=== PATIENT | female | born 1960 | race Caucasian/White ===

== ENCOUNTER → 2017-01-13 11:39 | Outpatient (CLI) | payer MEDICAID ==
[~2017-01-13] VITALS: Ht 177.8 cm; Wt 104.5 kg
--- NOTE | ~2017-01-13 | HEMODYNAMI ---
PATIENT:LIONEL RAYO MEDICAL RECORD: [id number] : 62 LOCATION:[facility] ADMISSION DATE: 01/13/17 Generatedon:01/13/201714:20 Patient name: LIONEL RAYO Patient #: [id number] SSN: : Date of study: 01/13/2017 Page: Of Hemodynamic Procedure Report Patient Data Patient Demographics Procedure consent was obtained First Name: LIONEL Gender: Female Last Name: PERRI : 1960 Middle Initial: KATHYA Age: 56 year(s) Patient #: [id number] Race: Unknown Additional ID: [id number] Contact details [address]: [address] [place] [address] State: [place] City: [place] Zip code: [address] Admission Admission Data Admission Date: 01/13/2017 Admission Time: 11:39 Procedure Procedure Types Cath Procedure Diagnostic Procedure LHC LHC w/Coronaries Miscellaneous Procedures Moderate Sedation up to 15 minutes Procedure Description Procedure Date Procedure Date: 01/13/2017 Procedure Start Time: 14:00 Procedure End Time: 14:19 Procedure Staff Name Function Nicholas Hill MD Performing Physician Martin Crews RT Scrub Candelaria Escalona RN Nurse Sid Tucker RT Monitor Procedure Data Cath Procedure Fluoroscopy Diagnostic fluoroscopy Total fluoroscopy Time: 5.7 time: 5.7 min min Diagnostic fluoroscopy Total fluoroscopy dose: 716 dose: 716 mGy mGy Contrast Material Contrast Material Type Amount (ml) Isovue 300 103 Entry Location Entry Primary Successful Side Size Upsize Upsize Entry Closure Richardson ccessful Closure Location (Fr) 1 (Fr) 2 (Fr) Remarks Device Remarks Radial Right 6 Fr Mechanical artery Short Compression Estimated blood loss: 10 ml Diagnostic catheters Device Type Used For End Catheter Placement Diagnostic Terumo 5Fr Procedure [place] 110cm catheter Diagnostic Infinity 5Fr Procedure AR MOD Catheter Procedure Complications No complications Procedure Medications Medication Administration Route Dosage Oxygen NC 2 l/min Heparin Flush Bag added to field 2 bags (1000units/500ml NS) Lidocaine 2% added to field 20 Radial Cocktail added to field 1 syringe (Verapomil 2mg/Nitro 400mcg/Heparin 1500units) Versed I.V. 1 mg Fentanyl I.V. 50 mcg Versed I.V. 1 mg Fentanyl I.V. 50 mcg Radial Cocktail added to field 1 syringe (Verapomil 2mg/Nitro 400mcg/Heparin 1500units) Versed I.V. 1 mg Fentanyl I.V. 50 mcg Hemodynamics Rest Heart Rate: 65 (bpm) Pressure Samples Time Site Value (mmHg) Purpose Heart Use Rate(bpm) 14:02 LV 113/19,22 Snapshot 83 14:04 AO 117/75(93) Snapshot 77 Gradients Valve Time Site Site Mean SEP/DFP Peak To Heart Use 1 2 (mmHg) (sec/min) Peak Rate (mmHg) (bpm) Aortic 14:03 LV AO 84 Snapshots Pre Cath Intra NCS Post Cath Vital Signs Time Heart Resp SPO2 etCO2 [id number] NIBP (mmHg) Rhythm Pain Sedation Rate (ipm) (%) (mmHg) (mmHg) Status Level (bpm) 13:49:23 67 15 99 0 0 148/80(115) NSR 0 (11) 10(A) , No pain 13:53:48 66 17 100 0 0 143/80(112) NSR 0 (11) 10(A) , No pain 13:58:10 64 16 96 0 0 142/79(114) NSR 0 (11) 10(A) , No pain 14:03:09 81 28 98 0 0 Measuring NSR 0 (11) 10(A) , No pain 14:03:25 82 27 97 0 0 111/69(97) NSR 0 (11) 9(A) , No pain 14:07:39 71 16 96 0 0 127/75(98) NSR 0 (11) 9(A) , No pain 14:11:57 76 16 97 0 0 143/78(117) NSR 0 (11) 9(A) , No pain 14:15:57 80 23 95 0 0 142/77(111) NSR 0 (11) 10(A) , No pain Medications Time Medication Route Dose Verified Delivered Reason Notes Effectiveness by by 13:48:17 Oxygen NC 2 l/min Nicholas Donovan RN physician 13:48:25 Heparin Flush added 2 bags Nicholas Peterson used for Bag to Liz Liz procedure (1000units/500ml field MD GRIMM NS) 13:48:32 Lidocaine 2% added 20ml Nicholas Nicholas used for to vial Liz Musselshell procedure field MD GRIMM 13:48:40 Radial Cocktail added 1 Nicholas Peterson used for (Verapomil to syringe [place]hell procedure 2mg/Nitro field MD GRIMM 400mcg/Heparin 1500units) 13:56:26 Versed I.V. 1 mg Nicholas Candelaria for sedation [facility] Escalona RN, MD 13:56:36 Fentanyl I.V. 50 mcg Nicholas Candelaria for sedation [facility] Escalona RN, MD 13:58:34 Versed I.V. 1 mg Nicholas Candelaria for sedation [facility] Escalona RN, MD 13:58:37 Fentanyl I.V. 50 mcg Nicholas Candelaria for sedation MusselshellRush Escalona RN, MD 14:00:38 Versed I.V. 1 mg Nicholas Candelaria for sedation MusselshellRush Escalona RN, MD 14:00:47 Fentanyl I.V. 50 mcg Nicholas Candelaria for sedation MusselshellRush Escalona RN, MD 14:01:06 Radial Cocktail added 1 Nicholas Peterson for (Verapomil to syringe [place] Liz vasodilation 2mg/Nitro field MD GRIMM 400mcg/Heparin 1500units) Procedure Log Time Note 13:20:20 Martin Crews RT(R) sent for patient. Start room use. 13:30:15 ACC Patient presents with Stable Angina CCS Anginal Class 2--Slight limitation of ordinary activity. 13:30:17 Diagnostic Cath status Elective 13:30:21 Time tracking: Regular hours 13:30:26 Plan of Care:Hemodynamics will remain stable., Cardiac rhythm will remain stable., Comfort level will be maintained., Respiratory function will remain adequate., Patient/ family verbilizes understanding of procedure., Procedure tolerated without complication., Recovers from procedure without complications.. 13:42:38 Patient received from Pre/Post Procedure Room to [facility] 1 Alert and oriented. Tansferred to table in Supine position. 13:42:39 Warm blankets applied, and wilder hugger turned on for patient comfort. 13:42:40 Correct patient and procedure confirmed by team. 13:42:41 Signed procedure consent form obtained from patient. 13:42:42 ECG and BP/O2 sat monitors applied to patient. 13:44:39 H&P Date Dictated: 01/09/2017 Within 30 days and on chart., H&P Addendum completed by physician on day of procedure. (MUST COMPLETE FOR ALL OUTPATIENTS). 13:48:07 Vital chart was started 13:48:17 Oxygen 2 l/min NC was administered by Candelaria Escalona RN; Per physician; 13:48:25 Heparin Flush Bag (1000units/500ml NS) 2 bags added to field was administered by Nicholas Hill MD; used for procedure; 13:48:32 Lidocaine 2% 20ml vial added to field was administered by Nicholas Hill MD; used for procedure; 13:48:40 Radial Cocktail (Verapomil 2mg/Nitro 400mcg/Heparin 1500units) 1 syringe added to field was administered by Nicholas Hill MD; used for procedure; 13:54:39 Baseline sample Acquired. 13:54:48 Rhythm: sinus rhythm 13:54:49 Full Disclosure recording started 13:54:50 Pre-procedure instructions explained to patient. 13:54:51 Pre-op teaching completed and patient verbalized understanding. 13:54:52 Family unavailable. 13:54:54 Patient NPO since Midnight. 13:54:55 Is the patient allergic to Iodine/contrast media? Yes. 13:54:56 Was the patient premedicated? Yes 13:54:57 Is patient on blood thinner?No 13:55:00 Patient diabetic? No. 13:55:02 Patient not . Patient has had hysterectomy. 13:55:04 Previous problem with sedation/anesthesia? No ? 13:55:05 Snore? Yes 13:55:06 Sleep apnea? Yes 13:55:07 Deviated septum? No 13:55:08 Opens mouth fully? Yes 13:55:09 Sticks out tongue? Yes 13:55:11 Airway obstruction? No ? 13:55:14 Dentures? Yes IN 13:55:24 Pre procedure: right dorsailis pedis pulse 1+ Palpable, but thready & weak; easily obliterated 13:55:26 Modified Dada's test Ulnar < 7 seconds 13:55:29 Patient pain scale 0/10 ?. 13:55:33 IV patent on arrival in left forearm with 0.9% NaCl at O. 13:55:35 Lab results completed and on chart. 13:55:38 Right Radial & Right Groin area was prepped with chlora-prep and draped in sterile fashion 13:55:39 Alarms reviewed by R. N. 13:55:40 Sharps counted by scrub and verified by R.N. 13:55:42 --------ALL STOP TIME OUT------ 13:55:42 Final Timeout: patient, procedure, and site verified with staff and physician. All members of the team are in agreement. 13:55:44 Right Radial & Right Groin site verified by team. 13:55:48 Physical assessment completed. ASA score P 2 - A patient with mild systemic disease as per Nicholas Hill MD. 13:55:51 Sedation plan: IV Moderate Sedation Versed, Fentanyl 13:56:13 Use device set Radial Dx 13:56:15 Tegaderm 4 x 4 opened to sterile field. 13:56:16 Acist Manifold opened to sterile field. 13:56:17 Acist Hand Control opened to sterile field. 13:56:18 Acist Syringe opened to sterile field. 13:56:18 Medline Cath Pack opened to sterile field. 13:56:19 Bag Decanter opened to sterile field. 13:56:19 Terumo 6Fr Slender Glidesheath opened to sterile field. 13:56:20 St Brian 260cm J .035 wire opened to sterile field. 13:56:20 MBrace Wrist Support opened to sterile field. 13:56:26 Versed 1 mg I.V. was administered by Candelaria Escalona RN; for sedation; 13:56:36 Fentanyl 50 mcg I.V. was administered by Candelaria Escalona RN; for sedation; 13:58:34 Versed 1 mg I.V. was administered by Candelaria Escalona RN; for sedation; 13:58:37 Fentanyl 50 mcg I.V. was administered by Candelaria Escalona RN; for sedation; 14:00:12 Procedure started. 14:00:17 Local anesthetic to right radial artery with Lidocaine 2% by Nicholas Hill MD.INITIAL ACCESS ONLY 14:00:38 Versed 1 mg I.V. was administered by Candelaria Escalona RN; for sedation; 14:00:47 Fentanyl 50 mcg I.V. was administered by Candelaria Escalona RN; for sedation; 14:00:49 A 6 Fr Short sheath was inserted into the Right Radial artery 14:01:06 Radial Cocktail (Verapomil 2mg/Nitro 400mcg/Heparin 1500units) 1 syringe added to field was administered by Nicholas Hill MD; for vasodilation; 14:01:33 A Diagnostic Terumo 5Fr [place] 110cm catheter was advanced over the wire and used for Procedure. 14:02:12 Zero performed for pressure channel P1 14:02:14 Zero performed for pressure channel P1 14:02:21 Zero performed for pressure channel P1 14:02:24 Zero performed for pressure channel P1 14:03:07 LV angiography performed. 14:03:08 LV gram done using CARTER 14:03:26 EF : 55 % 14:03:30 Injector settings: Ml/sec: 7, Volume: 15, 14:03:32 LV hemodynamics recorded. 14:03:44 LCA angiography performed. 14:06:22 Catheter exchanged over wire. 14:06:34 A Diagnostic Infinity 5Fr AR MOD Catheter was advanced over the wire and used for Procedure. 14:11:39 RCA angiography performed. 14:11:58 Catheter removed. 14:12:08 Terumo TR Band Standard opened to sterile field. 14:12:16 Sheath removed intact; hemostasis achieved with Mechanical Compression to the Right Radial artery. 14:12:19 Procedure ended.(Physican Out) 14:12:33 Fluoroscopy time 05.70 minutes. 14:12:36 Fluoroscopy dose: 716 mGy 14:12:36 Flurop Dose total: 716 14:12:41 Contrast amount:Isovue 300 103ml. 14:12:43 Sharps counted by scrub and verified by R.N. 14:12:46 TR band inflated with 12cc of air. 14:12:47 Insertion/operative site no bleeding no hematoma. 14:12:49 Post Procedure Pulses reassessed and unchanged 14:12:52 Post-procedure physical assessment completed. ASA score P 2 - A patient with mild systemic disease as per Nicholas Hill MD. 14:13:08 Post procedure rhythm: unchanged. 14:13:11 Estimated blood loss: 10 ml 14:13:13 Post procedure instruction explained to patient.Patient verbalizes understanding. 14:13:23 Procedure type changed to Cath procedure, Diagnostic procedure, LHC, LHC w/Coronaries, Miscellaneous Procedures, Moderate Sedation up to 15 minutes 14:13:24 Patient needs reinforcement of post procedure teaching. 14:13:27 Procedure Complication : No complications 14:13:40 Procedure and supply charges have been captured, reviewed, submitted and are correct. 14:19:12 Vital chart was stopped 14:19:13 See physician's report for complete and final results. 14:19:31 Report given to Pre/Post Procedure Room. 14:19:33 Patient transfered to Pre/Post Procedure Room with Stretcher. 14:19:36 Procedure ended. 14:19:36 Full Disclosure recording stopped 14:19:45 End room use (Document Last) Device Usage Item Name Manufacture Quantity Catalog Hospital Part Current Minimal Lot# / Number Charge Number Stock Stock Serial# Code Tegaderm 4 3M 1 [id number] [id number] [id number] 5 x 4 Acist Acist 1 67540 598824 388530 851824 5 Manifold [employer] Inc Acist Hand Acist 1 98557 430567 542096 075341 5 Control Medical Systems Inc Acist Acist 1 88675 458140 757223 955651 20 Syringe Medical Systems Inc Medline Cardinal 1 [id number] 444526 72580 105881 5 Cath Pack Health Bag Microtek 1 2002S 048623 88490 508180 5 [employer]. Terumo 6Fr Terumo 1 [id number] 831875 469681 902952 [address] Brian 1 268185 584214 101172 503519 30 260cm J .035 wire MBrace Advanced 1 [id number] 394008 35961 297680 5 Wrist Vascular Support Dynamics Diagnostic Terumo 1 88-6329 088923 126395 475694 5 Terumo 5Fr [place] 110cm catheter Diagnostic Cardinal 1 [id number] 697658 354711 944096 15 Pintail Technologiesity Health 5Fr AR MOD Catheter Terumo TR Terumo 1 [id number] 645858 649898 114048 40 Band Standard Signature Audit Winsted Stage Time Signature Unsigned Intra-Procedure 01/13/2017 Sid Tucker 2:20:09 PM RT(R) Signatures Monitor : Sid Tucker RT Signature : Date : Time : [id number] [place] [address]
[~2017-01-13 11:39] MED LIST: AMBIEN10 MG PO; CELEXA20 MG PO; DETROL LA4 MG PO; ELAVIL10 MG PO; FENOFIBRATE134 MG PO; HYDROCODONE-APA1 TAB PO; INDERAL10 MG PO; K-TAB10 MEQ PO; PEPCID40 MG PO; PROTONIX40 MG PO; ROBAXIN-750750 MG PO; VERELAN120 MG PO; ZOLOFT100 MG PO
[2017-01-13 11:58] VITALS: BP 127/73; Ht 177.8 cm; Wt 104.5 kg
[2017-01-13 12:26] LABS: BASOPHILS 0.2 % (0-2); EOSINOPHILS 0 % (0-7); HEMATOCRIT 39.3 % (36.0-48.0); HEMOGLOBIN 13.2 g/dL (12-16); IMMATURE GRANULOCYTES 0.4 % (0-5); LYMPHOCYTES 25.6 % (15-50); MCH 31.4 pg (26.0-34.0); MCHC 33.6 g/dL (31.0-37.0); MCV 93.6 fL (80.0-100.0); MEAN PLATELET VOLUME 11.4 fL (7.4-10.4); MONOCYTES 7.6 % (2-11); NEUTROPHILS 66.2 % (40-80); PLATELET COUNT 244 10x3/uL (130-400); RDW 13.3 % (11.5-14.5); WBC 12.3 10x3/uL (4.8-10.8)
[2017-01-13 12:42] LABS: ANION GAP 14.1 mmol/L (8-16); CALCIUM 8.8 mg/dL (8.5-10.1); CARBON DIOXIDE 28.2 mmol/L (21.0-32.0); CREATININE - SERUM 0.9 mg/dL (0.6-1.3); POTASSIUM - SERUM 4.3 mmol/L (3.5-5.1)
--- NOTE | 2017-01-13 14:44 | NUR ---
TR BAND CDI TO RIGHT WRIST, RESTING
--- NOTE | 2017-01-13 15:15 | NUR ---
NO CHANGES IN RIGHT WRIST, DENIES NEEDS
--- NOTE | 2017-01-13 16:30 | NUR ---
IV D'C WITH CATH TIP INTACT, WRITTEN AND VERBAL INSTRUCTIONS GIVEN TO PT. D'C HOME WITH SISTER. DENIES PAIN OR FURTHUR NEEDS
--- NOTE | 2017-01-16 13:25 | OP ---
PATIENT NAME: LIONEL RAYO MEDICAL RECORD: [id number] :62 LOCATION:D.[facility] ADMISSION DATE: SURGEON: CARMELINA MELVIN MD OPERATION DATE: 01/13/17 PROCEDURES: 1. Left heart catheterization. 2. Selective coronary angiography. PROCEDURE IN DETAIL: After informed consent was obtained and after detailed explanation of risks, benefits, as well as alternative therapies, the patient elected to proceed with angiogram. The right radial area was prepped and draped in a normal sterile fashion. The right radial artery was cannulated via modified Seldinger technique with placement o f radial sheath, Regina catheter. All catheters exchanged through this sheath. The procedure was well-tolerated. The patient was returned to the renee after sheath was removed and TR band was placed. FINDINGS: Left ventriculography performed in standard 30 degree CARTER view, reveals normal wall motion and normal systolic function. CORONARY ANATOMY: 1. LEFT MAIN: The left main is free of disease. 2. LEFT ANTERIOR DESCENDING: The left anterior descending is free of disease as is the diagonal system. 3. CIRCUMFLEX: The circumflex is free of disease as is the marginal system. 4. RIGHT CORONARY ARTERY: Dominant artery gives rise to the PDA, free of disease. IMPRESSION: Normal left ventricular systolic function. Normal coronary anatomy. CARMELINA MELVIN MD at 1325 CC: [id number] DICTATION DATE: 01/13/17 1500 STUDENT ACCOUNTS COORDINATOR: DM 01/14/17 0852 DEP CLI 01/13/17 [facility] [address] [place] [address]
== END | disposition home or self-care (01) ==
LOC: D.CATH 11:39
PROVIDERS: Internal Medicine Interventional Cardiology
DX: I20.9 Angina pectoris, unspecified (principal); Z01.812 Encounter for preprocedural laboratory examination

== ENCOUNTER → 2017-05-20 16:59 | Outpatient (CLI) | payer MEDICAID ==
[2017-01-13 11:58] VITALS: BMI 33.0
== END | disposition home or self-care (01) ==
LOC: D.MAMMO 14:30
DX: Z12.31 Encounter for screening mammogram for malignant neoplasm of breast (principal)

== ENCOUNTER → 2018-01-22 09:58 | Outpatient (CLI) | payer MEDICAID ==
[2017-01-13 11:58] VITALS: BMI 33.0
== END | disposition home or self-care (01) ==
LOC: D.CT 09:58
DX: Z72.0 Tobacco use (principal)

== ENCOUNTER → 2018-05-26 19:53 | Outpatient (CLI) | payer MEDICAID ==
[2017-01-13 11:58] VITALS: BMI 33.0
== END | disposition home or self-care (01) ==
LOC: D.MAMMO 08:00
DX: Z12.31 Encounter for screening mammogram for malignant neoplasm of breast (principal)

== ENCOUNTER → 2018-07-14 08:02 | Outpatient (CLI) | payer MEDICAID ==
[2017-01-13 11:58] VITALS: BMI 33.0
== END | disposition home or self-care (01) ==
LOC: D.RAD 08:02
DX: J44.9 Chronic obstructive pulmonary disease, unspecified (principal)

== ENCOUNTER → 2018-07-27 09:16 | Outpatient (CLI) | payer MEDICAID ==
[2017-01-13 11:58] VITALS: BMI 33.0
== END | disposition home or self-care (01) ==
LOC: D.CT 09:16
DX: J44.9 Chronic obstructive pulmonary disease, unspecified (principal)

== ENCOUNTER → 2018-11-03 09:50 | Outpatient (CLI) | payer MEDICAID ==
[2017-01-13 11:58] VITALS: BMI 33.0
[2018-11-03 10:39] LABS: ALBUMIN 3.8 g/dL (3.4-5.0); BILIRUBIN - DIRECT 0.07 mg/dL (0.00-0.30); BILIRUBIN - INDIRECT 0.27 mg/dL (0.00-1.00); BILIRUBIN - TOTAL 0.34 mg/dL (0.2-1.3); PROTEIN - SERUM 7.3 g/dL (6.4-8.2)
== END | disposition home or self-care (01) ==
LOC: D.LAB 09:50 → D.CT 10:30
PROVIDERS: ATTEND Internal Medicine Gastroenterology
DX: R59.0 Localized enlarged lymph nodes (principal); R59.9 Enlarged lymph nodes, unspecified

== ENCOUNTER 2018-11-19 05:32 | Outpatient (CLI) | payer MEDICAID ==
[~2018-11-19] VITALS: Ht 177.8 cm; Wt 109.1 kg
[~2018-11-19 05:32] MED LIST changes: -ELAVIL10 MG PO; +ELAVIL75 MG PO
[2018-11-19] MEDS ORDERED: AMBIEN10 MG PO (06:17)
[2018-11-19] MEDS ORDERED: PRAVACHOL20 MG PO (06:18)
[2018-11-19] MEDS ORDERED: PEPCID AC20 MG PO (06:19)
[2018-11-19] MEDS ORDERED: ALBUTEROL SULF8.5 GM INH (06:20)
[2018-11-19] MEDS ORDERED: STIOLTO RESPIMAT4 GM INH (06:21)
[2018-11-19] MEDS ORDERED: GLUCOPHAGE500 MG PO (06:22)
[2018-11-19 06:47] VITALS: BP 138/63; Ht 177.8 cm; Wt 109.1 kg
[2018-11-19 07:53] LABS: LYMPHOCYTES 35.3 % (15-50); MCH 32.3 pg (26.0-34.0); MCHC 35.3 g/dL (31.0-37.0); MCV 91.6 fL (80.0-100.0); MEAN PLATELET VOLUME 10.2 fL (7.4-10.4); NEUTROPHILS 55.5 % (40-80); PLATELET COUNT 202 10x3/uL (130-400); RBC 3.71 10x6/uL (4.00-5.40); RDW 12.1 % (11.5-14.5)
[2018-11-19 07:59] LABS: INR 0.91 (0.85-1.17); PROTIME 11.8 SECONDS (11.6-15.0)
[2018-11-19 08:26] LABS: ANION GAP 13.6 mmol/L (8-16); CALCIUM 8.8 mg/dL (8.5-10.1); CARBON DIOXIDE 25.3 mmol/L (21.0-32.0); CREATININE - SERUM 0.9 mg/dL (0.6-1.3); POTASSIUM - SERUM 3.9 mmol/L (3.5-5.1)
--- NOTE | 2018-11-19 12:13 | NUR ---
0930 VS ARE BEING DOCUMENTED ON POST PROCEDURE FORM AND IN PAPER CHART.
--- NOTE | 2018-11-19 15:04 | NUR ---
1325 IV DC'D. CATHETER INTACT. NO BLEEDING AT SITE AFTER HOLDING PRESSURE. BANDAID APPLIED.
== END 2018-11-19 13:44 | disposition home or self-care (01) ==
LOC: D.OPS 05:32 → D.CT 05:32 → D.OPS 13:44
PROVIDERS: Specialist; ATTEND Internal Medicine Hematology & Oncology
DX: I88.0 Nonspecific mesenteric lymphadenitis (principal)

== ENCOUNTER → 2018-12-17 09:22 | Outpatient (CLI) | payer MEDICAID ==
[2018-11-19 06:47] VITALS: BMI 34.5
[~2018-12-17 09:22] MED LIST changes: +ALBUTEROL SULF8.5 GM INH; +GLUCOPHAGE500 MG PO; +PEPCID AC20 MG PO; +PRAVACHOL20 MG PO; +STIOLTO RESPIMAT4 GM INH
== END | disposition home or self-care (01) ==
LOC: D.RT 09:22
PROVIDERS: ATTEND Internal Medicine Pulmonary Disease
DX: J44.9 Chronic obstructive pulmonary disease, unspecified (principal)

== ENCOUNTER → 2019-02-10 09:50 | Outpatient (CLI) | payer MEDICAID ==
[2018-11-19 06:47] VITALS: BMI 34.5
--- NOTE | 2019-02-14 09:24 | EC ---
PATIENT:LIONEL RAYO DATE OF SERVICE: 02/10/19 SEX: F MEDICAL RECORD: [id number] DATE OF : 62 LOCATION:D[facility] AGE OF PATIENT: 58 ADMISSION DATE: 02/10/19 REFERRING PHYSICIAN: INTERPRETING PHYSICIAN: CARMELINA MELVIN MD ECHOCARDIOGRAM REPORT ECHO CHARGES 4 ECHO COMPLETE Date: 02/10/19 CLINICAL DIAGNOSIS: MURMUR ECHOCARDIOGRAPHIC MEASUREMENTS (adult normal given) AC root (d.<3.7cm) 3.2 cm LV Septum d (<1.2 cm> 1.4 cm Valve Excursion 1.2 cm LV Septum (systole) 1.7 cm Left Atria (s.<4.0cm> 3.8 cm LVPW d(<1.2cm) 1.4 cm RV (d.<2.3cm) 3.5 cm LVPW (sytole) 1.5 cm LV diastole(<5.6CM) 5.2 cm MV E-F(>70mm/sec) cm LV systole 3.1 cm LVOT Diameter 1.8 cm MV exc.(>10mm) 1.8 cm Est.ejection fraction (50-75%) % DOPPLER: LVIT cm/sec A 90.0 cm/sec E 62.0 cm/sec LA cm/sec RVSP 31 mmHg LVOT 107 cm/sec AOP1/2T m/s Asc. Ao 148 cm/sec RVOT 78 cm/sec RA cm/sec PA 115 cm/sec AV Gradient Peak 8.71 mmHg AV Mean 4.82 mmHg AV Area 2.1 cm MV Gradient Peak 4.09 mmHg MV Mean 1.65 mmHg MV Area cm COMMENTS: Infertility Medical Assistant: 2 ENDY MONTOYA Ball Winder: 3 Dr. Hill TAPE# PACS Pericardial Effusion Y DATE OF SERVICE: Adequate 2D, color flow, spectral Doppler, and M-mode. LVH is present. LV internal dimension is normal. Wall motion normal. EF is greater than or equal to 55%. Aortic valve is tricuspid. No evidence of stenosis by Doppler interrogation. Left atrium is normal at 3.0 cm. Mitral valve shows no prolapse. Trace MR. Right-sided chambers grossly normal. Trace TR. TRANSINT:[id number] Voice Confirmation ID: [id number] DOCUMENT ID: [id number] ECHOCARDIOGRAM REPORT [id number] LIONEL RAYO,CARMELINA Lin MD at 0924 CC: [id number] DICTATION DATE: 02/11/19 1255 RN NEW GRAD: 02/11/19 1316 DEP CLI 02/10/19 [facility] [address] [place] [address]
== END | disposition home or self-care (01) ==
LOC: D.HCCARDIO 09:50
PROVIDERS: ATTEND Internal Medicine Interventional Cardiology
DX: R01.1 Cardiac murmur, unspecified (principal)

== ENCOUNTER → 2019-03-02 11:25 | Outpatient (CLI) | payer MEDICAID ==
[2018-11-19 06:47] VITALS: BMI 34.5
--- NOTE | 2019-03-10 14:31 | ST ---
PATIENT:LIONEL RAYO MEDICAL RECORD: [id number] SEX: F LOCATION:[facility] ORDER #: ADMISSION DATE: 03/02/19 AGE OF PATIENT: 58 REFERRING PHYSICIAN: INTERPRETING PHYSICIAN: DEBRA HENRY MD DATE OF SERVICE: 03/02/2019 PROCEDURE: Nuclear stress test. INDICATION: Angina, abnormal ECG, hypertension, hyperlipidemia. She was exercised on standard Lexiscan protocol with 26 mCi of sestamibi injected at peak stress, 8 mCi used previously for rest images. FINDINGS: Gated SPECT reveals preserved ejection fraction at 66% with good wall motion and thickening and brightening throughout all segments. SPECT imaging Cardiolite was used as myocardial fusion agent. There is homogeneous uptake throughout all segments at rest and stress with no evidence of inducible ischemia or previous infarction. OVERALL IMPRESSION: 1. This is a normal nuclear stress test with no evidence of inducible ischemia or previous infarction. 2. Gated SPECT reveals a preserved ejection fraction at 66%. In this patient with ongoing symptomatology, the current scan does not suggest the presence of hemodynamically significant coronary artery disease. Evaluate noncardiac etiology of chest pain. TRANSINT:[id number] Voice Confirmation ID: [id number] DOCUMENT ID: [id number] DEBRA HENRY MD at 1431 CC: [id number] DICTATION DATE: 03/03/19 1601 SEWAGE PLANT OPERATOR: 03/04/19 0103 DEP CLI 03/02/19 [address] [address] [place] [address]
== END | disposition home or self-care (01) ==
LOC: D.HCCARDIO 11:25
PROVIDERS: ATTEND Internal Medicine Interventional Cardiology
DX: I20.9 Angina pectoris, unspecified (principal)

== ENCOUNTER → 2019-03-04 06:47 | Outpatient (CLI) | payer MEDICAID ==
[2018-11-19 06:47] VITALS: BMI 34.5
== END | disposition home or self-care (01) ==
LOC: D.US 06:47
PROVIDERS: ATTEND Internal Medicine Interventional Cardiology
DX: R09.89 Other specified symptoms and signs involving the circulatory and respiratory systems (principal)

== ENCOUNTER → 2019-05-21 14:47 | Outpatient (CLI) | payer MEDICAID ==
[2018-11-19 06:47] VITALS: BMI 34.5
== END | disposition home or self-care (01) ==
LOC: D.MRI 14:47
PROVIDERS: ATTEND Clinical Nurse Specialist Family Health
DX: M25.562 Pain in left knee (principal)

== ENCOUNTER 2019-12-30 08:00 | Outpatient (CLI) | payer MEDICAID ==
[2018-11-19 06:47] VITALS: BMI 34.5
== END 2019-12-30 10:00 | disposition home or self-care (01) ==
LOC: D.MAMMO 08:00
PROVIDERS: ATTEND Emergency Medicine
DX: Z12.31 Encounter for screening mammogram for malignant neoplasm of breast (principal)

== ENCOUNTER 2020-02-08 11:37 | Day surgery (SDC) | payer MEDICAID ==
[~2020-02-08] VITALS: Ht 177.8 cm; Wt 106.5 kg
--- NOTE | ~2020-02-08 | HEMODYNAMI ---
PATIENT:LIONEL RAYO MEDICAL RECORD: [id number] : 62 LOCATION:[facility] ADMISSION DATE: 02/08/20 Generatedon:02/08/202014:55 Patient name: LIONEL RAYO Patient #: [id number] : 1960 Date of study: 02/08/2020 Page: Of Hemodynamic Procedure Report Patient Data Patient Demographics Procedure consent was obtained First Name: LIONEL Gender: Female Last Name: PERRI : 1960 Middle Initial: KATHYA Age: 59 year(s) Patient #: [id number] Race: SSN: [id number] Additional ID: [id number] Contact details [address]: [address] [place] [address] State: [place] City: [place] Zip code: [address] Admission Admission Data Admission Date: 02/08/2020 Admission Time: 11:37 Arrival Date: 02/08/2020 Arrival Time: 13:00 Admit Source: Other Insurance Payor: Private health insurance [facility] #: [id number] Height (in.): 69.69 BSA: 2.22 (m2) Height (cm.): 177 BMI: 33.83 (kg/m2) Weight (lbs.): 233.69 Weight (kg.): 106 Lab Results Lab Result Date: 02/08/2020 Lab Result Time: 0:00 Biochemistry Name Units Result Min Max BUN mg/dl 14 --(--*-)-- 7 18 Creatinine mg/dl 1.1 --(--*-)-- 0.6 1.3 eGFR ml/min 54 *-(----)-- 90 120 NONAFRICAN CBC Name Units Result Min Max Hemoglobin g/dl 12.4 *-(----)-- 13.5 17.5 Procedure Procedure Types Cath Procedure Diagnostic Procedure SCOTT Procedure Description Procedure Date Procedure Date: 02/08/2020 Procedure Start Time: 14:39 Procedure End Time: 14:53 Procedure Staff Name Function Nicholas Aquino MD Performing Physician Elo Branham RT Monitor Dante Chapin CRNA Additional personnel Oksana Anderson Ui Ux Engineer Shara Bhatti RN Nurse Procedure Data Cath Procedure Estimated blood loss: 5 ml Procedure Complications No complications Procedure Medications Medication Administration Route Dosage 0.9% NaCl I.V. 100 ml/hr Oxygen etCO2 Nasal cannula 2 l/min Hurricaine [place] P.O. [address] Sprays Refer to Anesthesia Notes for Sedation Medications Hemodynamics Rest BSA: 2.22 (m2) HGB: 12.4 (g/dl) O2 Consumption: Estimated: 220.58 (ml/min) O2 Consumption indexed: Estimated:99.36 (ml/min/m) Heart Rate: 81 (bpm) Snapshots Pre Cath Intra NCS Post Cath Vital Signs Time Heart Resp SPO2 etCO2 NIBP (mmHg) Rhythm Pain Sedation Rate (ipm) (%) (mmHg) Status Level (bpm) 14:28:27 75 16 98 29 139/68(104) NSR 0 (11) 10(A) , No pain 14:32:49 71 22 100 28.4 142/74(101) NSR 0 (11) 10(A) , No pain 14:37:15 71 10 100 29.9 144/74(92) NSR 0 (11) 10(A) , No pain 14:41:47 76 15 98 16.4 108/63(83) NSR 0 (11) 10(A) , No pain 14:46:47 98 20 98 8.9 Measuring NSR 0 (11) 5(A) , No pain 14:48:11 97 12 99 20.2 Time NSR 0 (11) 5(A) Exceeded , No pain 14:51:41 84 16 100 26.9 117/61(93) NSR 0 (11) 10(A) , No pain Medications Time Medication Route Dose Verified Delivered Reason Notes Effecti veness by by 14:35:46 0.9% NaCl I.V. 100 Nicholas Jolley ml/hr St Rush Vega RN, MD 14:35:53 Oxygen etCO2 2 Nicholas Jolley used for Nasal l/min [facility] Rush Vega RN procedure cannula 14:36:04 Hurricaine [address] Nicholas Jolley for local [place] Sprays St Rush Vega RN anesthetic 14:36:10 Refer to Nicholas Howell for Anesthesia [facility] Rush Chapin sedation Notes for MD JC Sedation Medications Procedure Log Time Note 13:49:05 Diagnostic Cath Status : Elective 13:52:28 Lab Result : eGFR NONAFRICAN 54 ml/min 13:52:28 Lab Result : Hemoglobin 12.4 g/dl 13:52:28 Lab Result : BUN 14 mg/dl 13:52:28 Lab Result : Creatinine 1.1 mg/dl 13:52:35 Procedure Status SCOTT. 13:57:54 Elo Branham RT(R) sent for patient. Start room use. 13:57:55 Time tracking: Regular hours (M-F 7:00 - 5:00) 13:58:01 Plan of Care:Hemodynamics will remain stable., Cardiac rhythm will remain stable., Comfort level will be maintained., Respiratory function will remain adequate., Patient/ family verbilizes understanding of procedure., Procedure tolerated without complication., Recovers from procedure without complications.. 14:08:07 Informed consent obtained and on chart 14:08:15 Arrival Date: 02/08/2020 1:00:00 PM 14:08:37 Admit Source: Other 14:08:40 Insurance Payor : Private health insurance 14:08:48 Patient Height : 69.69 inches 14:08:53 Patient Weight : 233.69 lbs 14:18:41 Patient received from Pre/Post Procedure Room to CCL 1 Alert and oriented. Tansferred to table in Supine position. 14:18:44 Warm blankets applied, and wilder hugger turned on for patient comfort. 14:18:44 Correct patient and procedure confirmed by team. 14:18:45 ECG and BP/O2 sat monitors applied to patient. 14:27:08 Baseline sample Acquired. 14:27:08 Vital chart was started 14:27:15 Rhythm: sinus tachycardia 14:27:18 Full Disclosure recording started 14:27:23 H&P Date Dictated: 02/08/2020 Within 30 days and on chart., H&P Addendum completed by physician on day of procedure. (MUST COMPLETE FOR ALL OUTPATIENTS). 14:27:25 Pre-procedure instructions explained to patient. 14:27:26 Pre-op teaching completed and patient verbalized understanding. 14:27:42 Dante Chapin CRNA present and monitoring patient for TIVA. 14:27:56 [facility] Weekday Babysitter present for SCOTT. 14:28:16 Family unavailable. 14:28:19 Patient NPO since Midnight. 14:28:21 Is the patient allergic to Iodine/contrast media? Yes. 14:28:23 Was the patient premedicated? No 14:28:24 Is patient on blood thinner?No 14:28:27 Patient diabetic? Yes. 14:28:27 If diabetic: On Metformin? Yes 14:28:30 If on Metformin: Last Dose? 02/08/2020 14:28:34 Previous problem with sedation/anesthesia? No ? 14:28:37 Snore? Yes 14:28:38 Sleep apnea? No 14:28:39 Deviated septum? No 14:28:39 Opens mouth fully? Yes 14:28:40 Sticks out tongue? Yes 14:28:48 Airway obstruction? Yes EMPHYSEMA 14:28:52 Dentures? No ? 14:28:57 Pre procedure: right dorsailis pedis pulse 2+ Normal; easily identifiable; not easily obliterated 14:29:00 Pre procedure: left dorsailis pedis pulse 2+ Normal; easily identifiable; not easily obliterated 14:29:02 Patient pain scale 0/10 ?. 14:29:09 IV patent on arrival in left forearm with 0.9% NaCl at [facility]. 14:29:14 Lab results completed and on chart. 14:29:19 Alarms reviewed by Daniel Sanchez. 14:29:19 Sharps counted by scrub and verified by R.N. 14:29:24 Physician arrived 14:29:25 --------ALL STOP TIME OUT------ 14:29:25 Final Timeout: patient, procedure, and site verified with staff and physician. All members of the team are in agreement. 14:29:32 Fire Safety Assessment: A--An alcohol-based skin anteseptic being used preoperatively., C--Open oxygen or nitrous oxide is being used., D--An ESU, laser, or fiber-optic light is being used. 14:29:35 Physical assessment completed. ASA score P 2 - A patient with mild systemic disease as per Nicholas Aquino MD. 14:29:41 Sedation plan: TIVA Medication:Propofol 14:35:46 0.9% NaCl 100 ml/hr I.V. was administered by Buffie Vega RN; ; Verbal order read back and verified. 14:35:53 Oxygen 2 l/min etCO2 Nasal cannula was administered by Samreen Vega RN; used for procedure; Verbal order read back and verified. 14:36:04 Hurricaine [place] 2 Sprays P.O. was administered by Samreen Vega RN; for local anesthetic; Verbal order read back and verified. 14:36:10 Refer to Anesthesia Notes for Sedation Medications was administered by Dante Chapin CRNA; for sedation; Verbal order read back and verified. 14:39:33 Procedure started. 14:39:36 SCOTT started. 14:46:25 SCOTT completed. 14:46:42 Procedure ended.(Physican Out) 14:46:54 Sharps counted by scrub and verified by R.N. 14:46:57 Insertion/operative site no bleeding no hematoma. 14:48:06 Post Procedure Pulses reassessed and unchanged 14:48:10 Post procedure rhythm: unchanged. 14:48:25 Estimated blood loss: 5 ml 14:48:29 Post procedure instruction explained to patient.Patient verbalizes understanding. 14:48:30 Patient needs reinforcement of post procedure teaching. 14:48:40 Procedure type changed to Cath procedure, Diagnostic procedure, SCOTT 14:48:42 Procedure and supply charges have been captured, reviewed, submitted and are correct. 14:48:46 Procedure Complication : No complications 14:52:37 Vital chart was stopped 14:52:49 SCOTT Findings: SCOTT w/ cardioversion: no left atrial clot noted (proceed with cardioversion) 14:52:52 Operative report dictated upon procedure completion. 14:52:52 See physician's report for complete and final results. 14:52:58 Report given to Pre/Post Procedure Room. 14:53:01 Patient transfered to Pre/Post Procedure Room with Stretcher. 14:53:03 Procedure ended. 14:53:03 Full Disclosure recording stopped 14:53:11 End room use (Document Last) 14:54:02 End room use (Document Last) 14:54:33 End room use (Document Last) Signature Audit Minerva Stage Time Signature Unsigned Intra-Procedure 02/08/2020 Elo Branham 2:54:02 PM RT(R) Intra-Procedure 02/08/2020 Nicholas Coley 2:55:53 PM Rush [facility] [address] [place] [address]
[2020-02-08] MEDS ORDERED: LOW DOSE ASPIRI81 M1 PO (11:59)
[2020-02-08] MEDS ORDERED: ARNUITY ELLIP200 MCG INH (11:59)
[2020-02-08] MEDS ORDERED: LIPITOR40 MG PO (12:00)
[2020-02-08] MEDS ORDERED: BEVESPI AEROS10.7 GM INH (12:00)
[2020-02-08 12:03] VITALS: BP 127/63; Ht 177.8 cm; Wt 106.5 kg
[2020-02-08 12:09] LABS: BASOPHILS 0.5 % (0-2); EOSINOPHILS 6.3 % (0-7); HEMATOCRIT 38.1 % (36.0-48.0); HEMOGLOBIN 12.4 g/dL (12-16); IMMATURE GRANULOCYTES 0.4 % (0-5); LYMPHOCYTES 32.7 % (15-50); MCH 30.5 pg (26.0-34.0); MCHC 32.5 g/dL (31.0-37.0); MCV 93.8 fL (80.0-100.0); MEAN PLATELET VOLUME 10.4 fL (7.4-10.4); MONOCYTES 8.3 % (2-11); NEUTROPHILS 51.8 % (40-80); RBC 4.06 10x6/uL (4.00-5.40); RDW 12.9 % (11.5-14.5); WBC 7.7 10x3/uL (4.8-10.8)
[2020-02-08 12:10] LABS: PLATELET COUNT 250 10x3/uL (130-400)
[2020-02-08 12:18] LABS: ANION GAP 12.2 mmol/L (8-16); CALCIUM 8.6 mg/dL (8.5-10.1); CARBON DIOXIDE 26.6 mmol/L (21.0-32.0); CREATININE - SERUM 1.1 mg/dL (0.6-1.3); POTASSIUM - SERUM 3.8 mmol/L (3.5-5.1)
--- NOTE | 2020-02-08 15:00 | NUR ---
PT REC'D TO ROOM 4 VIA STRETCHER FROM MOLD MAKER HELPER. MONITORS ESTAB. PT AWAKE AND ORIENTED. SEE TANGLED YARN WORKER, ALARMS ON AND C/L IN REACH.
--- NOTE | 2020-02-08 15:15 | NUR ---
PT SITTING UP IN BED, VSS. NO S/S DISTRESS. ALARMS ON AND C/L IN REACH.
--- NOTE | 2020-02-08 15:35 | NUR ---
ALL DISCHARGE INSTRUCTIONS REVIEWED WITH PT, UNDERSTANDING VERBALIZED, NO QUESTIONS AT THIS TIME. PT SPOKE WITH HER SISTER RE: Jose/C AT 1600, SHE IS PTS RIDE.
--- NOTE | 2020-02-08 15:50 | NUR ---
VSS. PT TAKING SIPS OF WATER WITHOUT DIFFICULTY. PIV D/C'D INTACT, DSG APPLIED. PT ALLOWED UP TO GET DRESSED AND GO TO BR INDEPENDENTLY.
--- NOTE | 2020-02-08 16:00 | NUR ---
PT D/C'D VIA WC TO PRIVATE VEHICLE. PT HAS ALL PAPERWORK AND BELONGINGS, INCLUDING D/C INSTRUCTIONS AND F/U APPT.
--- NOTE | 2020-02-10 14:25 | TEE ---
PATIENT:LIONEL RAYO MEDICAL RECORD: [id number] LOCATION:[facility] AGE OF PATIENT: 59 ADMISSION DATE: 02/08/20 SEX: F REFERRING PHYSICIAN: INTERPRETING PHYSICIAN: CARMELINA MELVIN MD TRANSESOPHAGEAL ECHOCARDIOGRAM Date: 02/08/20 SCOTT CHARGE Y INDICATIONS: CEREBROVASCULAR DISEASE PREMEDICATIONS: PATIENT'S RESPONSE PROCEDURE DOPPLER MEASUREMENTS: LVIT LA PA RA LVOT RVOT Asc. Ao AV Gradient Peak AV Mean AV Area MV Gradient Peak MV Mean MV Area INTERPRETATION: Doppler: 2-D: COLOR FLOW DOPPLER NORMAL SALINE STUDY: MISCELLANOUS: DIAGNOSIS: PLAN: Recruitment Internship:3 Dr. Hill Carrier Packer: Sulema KLEIN COMMENTS: DATE OF SERVICE: DESCRIPTION OF PROCEDURE: After general sedation via TIVA via anesthesia, transesophageal Omniplane probe was placed to distal esophagus and proximal stomach without difficulty. FINDINGS: Grossly LVH is present. LV internal dimension is normal. Wall motion is normal. EF greater than or equal to 55%. Aortic valve is tricuspid with good valve excursion and mild AI. Left atrium appears normal. Left atrial TRANSESOPHAGEAL ECHOCARDIOGRAM REPORT [id number] LIONEL RAYO appendage is well visualized with good contractility. No evidence of thrombus. Mitral valve shows no prolapse. [id number] MR. Right-sided chambers appear grossly normal. Trace TR, no evidence of PFO, ASD or VSD by color flow or 2D imaging. TRANSINT:[id number] Voice Confirmation ID: [id number] DOCUMENT ID: [id number] at 1425 CC: [id number] DICTATION DATE: 02/08/20 1505 WORKFORCE DEVELOPMENT PROGRAM DIRECTOR: 02/09/20 0248 [facility] 02/08/20 [id number] [place] [address]
== END 2020-02-08 16:00 | disposition home or self-care (01) ==
LOC: D.CATH 11:37
PROVIDERS: ATTEND Internal Medicine Interventional Cardiology
DX: I10 Essential (primary) hypertension (principal); R07.9 Chest pain, unspecified; E78.5 Hyperlipidemia, unspecified; I67.9 Cerebrovascular disease, unspecified; Z72.0 Tobacco use